=== PATIENT | female | born 1950 ===

== ENCOUNTER 2018-07-21 15:01 | Emergency (ER) | payer MEDICARE, OTHER ==
[2018-07-21 15:14] VITALS: BP 130/79; PULSE 96; RESP 16; TEMP 98.5; O2SAT 97
--- NOTE | 2018-07-21 16:20 | ED PDOC ---
HPI: Trauma/Fall - HPI Time Seen by Provider: 07/21/18 15:42 Chief Complaint (Nursing): Trauma Chief Complaint (Provider): Trauma History Per: Patient History/Exam Limitations: no limitations Onset/Duration Of Symptoms: Days (x1 day) Additional Complaint(s): Patient is a 68 year old female with a past medical history of nephritis, HTN and thyroid issues, who presents to the emergency department after sustaining a slip and fall injury yesterday. Patient states she is from [place] and has come to visit her son. Patient was walking and slipped and fell forward. She is complaining of pain to her left palm, right ankle and left sided rib pain. She notes bruise to her forehead and abrasion to nose with no associated pain. Patient denies any LOC and states that she was able to walk after with no headache, changes in vision, nausea or vomiting. Pt continues to deny headache, changes in vision, lightheaded/dizzy, nausea or vomiting, neck pain. She states she has taken Tylenol yesterday and states that it helped a bit but has not taken anything today. PMD: in [place] Past Medical History Reviewed: Historical Data, Nursing Documentation, Vital Signs Vital Signs: Last Vital Signs Temp 98.5 F 07/21/18 15:13 Pulse 96 H 07/21/18 15:13 Resp 16 07/21/18 15:13 BP 130/79 07/21/18 15:13 Pulse Ox 97 07/21/18 15:13 Primary Care Provider: Lidia Jaramillo - Medical History PMH: HTN Other PMH: nephritis, goiter - Surgical History Other surgeries: thyroid (goiter) - Family History Family History: States: Unknown Family Hx - Allergies Allergies/Adverse Reactions: Allergies Allergy/AdvReac Type Severity Reaction Status Date / Time No Known Allergies Allergy Verified 07/21/18 15:13 Review of Systems ROS Statement: Except As Marked, All Systems Reviewed And Found Negative Eyes: Negative for: Vision Change Gastrointestinal: Negative for: Nausea, Vomiting Musculoskeletal: Positive for: Other (ankle pain; palm pain; rib pain) Neurological: Negative for: Headache, Other (LOC) Physical Exam - Reviewed Nursing Documentation Reviewed: Yes Vital Signs Reviewed: Yes - Physical Exam Comments: GENERAL APPEARANCE: Patient is awake, alert, oriented x 3, in no acute distress. SKIN: Warm, dry; (-) cyanosis. HEAD: (+) contusion and swelling on left forehead, with no palpable bony defect. EYES: (-) conjunctival pallor, (-) scleral icterus, (-) nystagmus., (-) Periorbital tenderness or swelling, (+) EOMI, (+) PERRL ENMT: Mucous membranes moist. Nose: (-) tenderness. (-) nose bleed; (-) septal hematoma (+) lower left nostril abrasion, No oral trauma. (-) jaw tenderness; (- ) dental instability; Pharynx clear. Airway patent: (-) stridor. Full ROM of mandible without pain. NECK: (+) mild bilateral trapezius tenderness (-) paracervical tenderness, (-) vertebral tenderness, (-) lymphadenopathy.(+)FROM, (-)bony step off CHEST AND RESPIRATORY: (+) lateral rib tenderness over left ribs 8-10; (-) ecchymosis or crepitus. Lungs: (-) rales, (-) rhonchi, (-) wheezes; breath sounds equal bilaterally. HEART AND CARDIOVASCULAR: (-) irregularity; (-) murmur, (-) gallop. ABDOMEN AND GI: Soft; (-) tenderness. BACK: (-) tenderness. (+)FROM (-) ecchymosis EXTREMITIES: pulses + 2, capillary refill <2sec, (+)FROM x4, NVI x4, LUE: (+) tenderness to 4-5th metacarpal with ecchymosis to palmar and dorsal aspect and edema; (+) good ROM (-) deformity, RLE: (+) right lateral malleolus tenderness and swelling, (+)FROM (-)deformity NEURO AND PSYCH: GCS=15. Mental status as above. 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 EOMI. (-) facial asymmetry. Tongue and uvula midline. Strength 5/5 in all extremities. No gross sensory deficits. DTRs symmetric. - ECG O2 Sat by Pulse Oximetry: 97 (RA) Pulse Ox Interpretation: Normal Medical Decision Making Medical Decision Making: Time: 1601 Impression: Injury sustain from fall Plan: --CT head without contrast --Ribs and chest left xray --Tylenol 650 mg PO --Right ankle xray 3 views --Left hand xray 5th digit Time: 1610 --Patient states she does not want CT of her head at this time. --At this time only risk factor is her age. --Patient is neurologically intact, injury occurred >20 hours ago and has no headache at this time. --Will not proceed forward with a CT scan 17:40 xr ankle Date of service: 07/21/2018 PROCEDURE: Right Ankle Radiographs. HISTORY: fall, lateral mall pain and swelling COMPARISON: None available. TECHNIQUE: 3 views obtained. FINDINGS: BONES: Fracture at the tip of the distal right fibula. The finding is marked on the study for review. Incidental calcaneal spurs. JOINTS: Normal. No osteoarthritis. Ankle mortise maintained. Talar dome intact SOFT TISSUES: Soft tissue swelling attests to the acuity of the fracture. OTHER FINDINGS: None. IMPRESSION: Acute distal right fibular fracture. xr hand Date of service: 07/21/2018 PROCEDURE: Left small finger radiographs. ISTORY: fall, brusining and pain 4th 5th carpal COMPARISON: None. TECHNIQUE: AP radiograph of the left hand, as well as spot oblique and lateral images of left small finger were obtained. 4 views obtained. FINDINGS: LEFT SMALL FINGER: Left small finger normal, without fracture of focal lesion. Remainder of the left hand (as seen on the AP view) is grossly unremarkable. 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 SOFT TISSUES: Normal. OTHER FINDINGS: None. IMPRESSION: No acute findings related to/ accounting for the clinical presentation. xr rib/chest Date of service: 07/21/2018 PROCEDURE: Radiographs of the Chest and Left Ribs. HISTORY: fall, lateral left rib pain COMPARISON: None available. TECHNIQUE: Frontal radiograph of the chest and multiple oblique radiographs of the left ribs were obtained. 4 views obtained. FINDINGS: LEFT RIBS: No fracture or focal lesion visualized. LUNGS: Clear. PLEURA: No pneumothorax or pleural fluid. CARDIOVASCULAR: Normal cardiac size. No pulmonary vascular congestion. No aortic atherosclerotic calcification present OTHER FINDINGS: None. IMPRESSION: Unremarkable radiographs of the chest and left ribs. No left rib fracture. due to fibula fracture and pt visiting with plans to fly on 08/02 will consult podiatry 1750 spoke to podiatry who reviewed xray as it is a very small fracture pt can be put in holland wrap and air cast and follow up with ortho when she is home holland wrap and air cast applied by cardiopulmonary technician, checked by me Discussed results, diagnosis, treatment, return precautions and f/u with pt who is understanding, in agreement and stable for dc Scribe Attestation: Documented by Tj Edwards, acting as a scribe for JEANNA Reyes. Provider Scribe Attestation: All medical record entries made by the Scribe were at my direction and personally dictated by me. I have reviewed the chart and agree that the record accurately reflects my personal performance of the history, physical exam, medical decision making, and the department course for this patient. I have also personally directed, reviewed, and agree with the discharge instructions and disposition. Disposition - Clinical Impression Clinical Impression: Fracture of distal end of right fibula, Contusion of hand, left, Contusion of forehead, Abrasion of nose, Fall from slip, trip, or stumble - Patient ED Disposition Is Patient to be Admitted: No Counseled Patient/Family Regarding: Studies Performed, Diagnosis, Need For Followup - Disposition Referrals: Podiatry Clinic [Outside] Ant Purvis, DPM [Doctor Pod[facility]] - Disposition: Routine/Home Disposition Time: 17:54 Condition: IMPROVED Additional Instructions: Thank you for letting us take care of you today. Rest, ice and elevate your leg, hand and forehead. Wear holland wrap for compression and air cast for support. Follow up with an orthopedist or football pad repairer as listed for your ankle and your primary doctor for other injury evaluation. Take Tylenol as needed for pain. The emergency medical care you received today was directed at your acute symptoms. If you were prescribed any medication, please fill it and take as directed. It may take several days for your symptoms to resolve. Return to the Emergency Department if your symptoms worsen, do not improve, or if you have any other problems. Please contact your doctor in 2 days for re-evaluation and follow up / or call one of the physicians/clinics you have been referred to that are listed on the Patient Visit Information form that is included in your discharge packet. Bring any paperwork you were given at discharge with you along with any medications you are taking to your follow up visit. Our treatment cannot replace ongoing medical care by a primary care provider (PCP) outside of the emergency department. Instructions: Ankle Fracture, Skin Abrasions, Contusion (DC), Minor Head Injury Forms: [employer] ([place]) Print Language: ALBANIAN - POA Present On Arrival: Falls Or Trauma
--- NOTE | 2018-07-21 17:21 | RAD ---
Date of service: 07/21/2018 PROCEDURE: Left small finger radiographs. HISTORY: fall, brusining and pain 4th 5th carpal COMPARISON: None. TECHNIQUE: AP radiograph of the left hand, as well as spot oblique and lateral images of left small finger were obtained. 4 views obtained. FINDINGS: LEFT SMALL FINGER: Left small finger normal, without fracture of focal lesion. Remainder of the left hand (as seen on the AP view) is grossly unremarkable. 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 SOFT TISSUES: Normal. OTHER FINDINGS: None. IMPRESSION: No acute findings related to/ accounting for the clinical presentation.
--- NOTE | 2018-07-21 17:22 | RAD ---
Date of service: 07/21/2018 PROCEDURE: Right Ankle Radiographs. HISTORY: fall, lateral mall pain and swelling COMPARISON: None available. TECHNIQUE: 3 views obtained. FINDINGS: BONES: Fracture at the tip of the distal right fibula. The finding is marked on the study for review. Incidental calcaneal spurs. JOINTS: Normal. No osteoarthritis. Ankle mortise maintained. Talar dome intact SOFT TISSUES: Soft tissue swelling attests to the acuity of the fracture. OTHER FINDINGS: None. IMPRESSION: Acute distal right fibular fracture.
--- NOTE | 2018-07-21 17:24 | RAD ---
Date of service: 07/21/2018 PROCEDURE: Radiographs of the Chest and Left Ribs. HISTORY: fall, lateral left rib pain COMPARISON: None available. TECHNIQUE: Frontal radiograph of the chest and multiple oblique radiographs of the left ribs were obtained. 4 views obtained. FINDINGS: LEFT RIBS: No fracture or focal lesion visualized. LUNGS: Clear. PLEURA: No pneumothorax or pleural fluid. CARDIOVASCULAR: Normal cardiac size. No pulmonary vascular congestion. No aortic atherosclerotic calcification present OTHER FINDINGS: None. IMPRESSION: Unremarkable radiographs of the chest and left ribs. No left rib fracture.
== END 2018-07-21 18:13 | disposition home or self-care (01) ==
LOC: H.ER 15:01
DX: S82.831A Other fracture of upper and lower end of right fibula, initial encounter for closed fracture (principal); S60.222A Contusion of left hand, initial encounter; S00.83XA Contusion of other part of head, initial encounter; S00.31XA Abrasion of nose, initial encounter; I10 Essential (primary) hypertension; W01.0XXA Fall on same level from slipping, tripping and stumbling without subsequent striking against object, initial encounter